=== PATIENT | male | born 1985 | race Caucasian/White ===

== ENCOUNTER 2021-04-06 06:35 | Emergency (ER) | payer MEDICAID ==
[~2021-04-06] VITALS: Ht 185.4 cm; Wt 163.6 kg
[2021-04-06 06:41] VITALS: BP 165/102
--- NOTE | 2021-04-06 06:43 | NUR ---
PT ON KEFLEX FOR A BROKEN NOSE.
[2021-04-06] MEDS ORDERED: LORazepam 2 mg/ml vial IM ONE (07:00)
--- NOTE | 2021-04-06 07:16 | NUR ---
PT STATES I DRANK A FIFTH OF WHISKEY AND 7 TABS 1MG TABS OF ATIVAN LAST NIGHT
== END 2021-04-06 07:30 ==
LOC: ER 06:36
DX: S80.212A Abrasion, left knee, initial encounter (principal); Z20.822 Contact with and (suspected) exposure to COVID-19; S80.211A Abrasion, right knee, initial encounter; R09.81 Nasal congestion; R50.9 Fever, unspecified; X58.XXXA Exposure to other specified factors, initial encounter; Y93.89 Activity, other specified; Y92.89 Other specified places as the place of occurrence of the external cause; Y99.8 Other external cause status
CPT/HCPCS: 87635; 96372; 99283; C9803; J2060

== ENCOUNTER 2023-06-29 13:24 | Emergency (ER) | payer MEDICAID ==
[~2023-06-29] VITALS: Ht 185.4 cm; Wt 150.0 kg
[2023-06-29] MEDS: LORazepam 1 MG tablet PO ONE (13:40)
[2023-06-29] MEDS: haloperidol lactate 5mg/ml inj IM ONE ×2 (13:40→15:15)
[2023-06-29] MEDS: diphenhydrAMINE 50 mg/ml inj IM ONE (13:40)
[2023-06-29 13:54] LABS: BASOPHILS % (AUTO) 0.3 % (0-1); EOSINOPHILS # (AUTO) 0.1 X10'3 (0-0.9); EOSINOPHILS % (AUTO) 0.9 % (0-6); HEMATOCRIT 44.3 % (42.0-52.0); HEMOGLOBIN 15.1 g/dl (14.0-17.9); LYMPHOCYTES # (AUTO) 2.1 X10'3 (1.1-4.8); LYMPHOCYTES % (AUTO) 13.3 % (21-51); MEAN CORPUSCULAR HEMOGLOBIN 30.2 PG (27.0-31.0); MEAN CORPUSCULAR VOLUME 88.8 FL (78-98); MEAN PLATELET VOLUME 6.7 FL (7.4-10.4); MONOCYTES # (AUTO) 1.1 X10'3 (0-0.9); MONOCYTES % (AUTO) 7.1 % (2-12); NEUTROPHILS # (AUTO) 12.3 X10'3 (1.8-7.7); NEUTROPHILS % (AUTO) 78.4 % (42-75); PLATELET COUNT 228 X10'3 (140-440); RED BLOOD COUNT 4.99 X10'6 (4.70-6.10); RED CELL DISTRIBUTION WIDTH 14.2 % (11.5-14.5); WHITE BLOOD COUNT 15.7 X10'3 (4.5-11.0)
[2023-06-29 14:13] LABS: BILIRUBIN,URINE SMALL (Neg); CLARITY,URINE CLEAR (Clear); COLOR,URINE YELLOW (Yellow); GLUCOSE, URINE NEGATIVE (Neg); KETONES,URINE NEGATIVE (Neg); LEUKOCYTE ESTERASE ,URINE NEGATIVE (Neg); NITRITES, URINE NEGATIVE (Neg); OCCULT BLOOD,URINE NEGATIVE (Neg); PROTEIN,URINE 30 mg/dl (Neg)
[2023-06-29 14:14] LABS: ALBUMIN 3.8 G/DL (3.4-5.0); ANION GAP 10 (8-16); BLOOD UREA NITROGEN 12 MG/DL (7-18); BUN/CREATININE RATIO 15.4 (10.0-20.0); CALCIUM 8.5 MG/DL (8.5-10.1); CHLORIDE 103 MMOL/L (99-107); CREATININE 0.78 MG/DL (0.60-1.10); ETHANOL < 10 MG/DL (<10); GLUCOSE 145 MG/DL (70-104); POTASSIUM 4.1 MMOL/L (3.5-5.1); SODIUM 137 MMOL/L (135-145); THYROID STIMULATING HORMONE 1.06 ulU/ml (0.34-4.50); TOTAL CARBON DIOXIDE 23.9 MMOL/L (24-32); eCRCL 145 ML/MIN; eGFR > 90 ML/MIN
[2023-06-29 14:21] LABS: UA COLLECTION TYPE CLN CATCH MIDSTREAM; URINE AMPHETAMINE SCREEN NEGATIVE (Neg); URINE BARBITUATE SCREEN NEGATIVE (Neg); URINE BENZODIAZEPINES SCREEN NEGATIVE (Neg); URINE CANNABINOID SCREEN POSITIVE (Neg); URINE COCAINE SCREEN NEGATIVE (Neg); URINE METHADONE SCREEN NEGATIVE (Neg); URINE OPIATE SCREEN NEGATIVE (Neg); URINE PHENCYCLIDINE SCREEN NEGATIVE (Neg)
[2023-06-29 14:23] LABS: BACTERIA,URINE FEW /HPF (Neg); HYALINE CASTS 0-3 /LPF (NEGATIVE); MUCUS STRANDS FEW /LPF (Neg); SQUAMOUS EPITHELIAL CELL,UR FEW /LPF (FEW); WBC,URINE 0-4 /HPF (0-4)
[2023-06-29 14:24] LABS: TRANSITIONAL EPI CELLS,URINE FEW /HPF
[2023-06-29] MEDS ORDERED: PROP40TA72 PO (15:17)
[2023-06-29] MEDS ORDERED: DIVA500T9 PO (15:17)
[2023-06-29] MEDS ORDERED: ESCI20TA39 PO (15:17)
[2023-06-29] MEDS ORDERED: OXCA300T16 PO (15:17)
[2023-06-29] MEDS: divalproex 250mg tablet, delayed-release PO SCH (20:21)
[2023-06-29] MEDS: propranolol 40mg tablet PO SCH (20:21)
[2023-06-29] MEDS: oxcarbazepine 150mg tablet PO SCH (20:21)
[2023-06-30] MEDS: LORazepam 1 MG tablet PO ONE (03:29)
[2023-06-30] MEDS: ESCITALOPRAM 10 mg tablet 10 MG TABLET PO SCH (08:56)
[2023-06-30] MEDS: nicotine 21mg patch - 24 hr TD SCH (09:06)
[2023-06-30 10:31] VITALS: BP 144/83; PULSE 80; RESP 18; TEMP 98.2; O2SAT 99
== END 2023-06-30 14:24 ==
LOC: ER 13:24
DX: R45.6 Violent behavior (principal); Z20.822 Contact with and (suspected) exposure to COVID-19; F31.9 Bipolar disorder, unspecified; Z79.899 Other long term (current) drug therapy; Z13.89 Encounter for screening for other disorder
CPT/HCPCS: 36415; 80048; 80305; 80320; 81001; 84443; 85025; 87811; 99285